=== PATIENT | male | born 1955 | race Caucasian/White ===

== ENCOUNTER 2016-11-03 12:46 | Emergency (ER) | payer SELFPAY ==
[~2016-11-03] VITALS: Ht 182.9 cm; Wt 79.4 kg
[~2016-11-03 12:46] MED LIST: CYCL10TA9; HYDR1TAB; IBUPROFEN
--- OUTSIDE RECORDS SUMMARY | 2016-11-03 12:53 | XMS REPORT | Continuity of Care Document ---
Author Author [facility] Address Unknown Phone Unavailable Allergies Medications Problems Date Dx Coded Attending Type Code Diagnosis Diagnosed By 01/01/2012 RICHIE NELSON APRN 723.1 PAIN NECK 01/01/2012 RICHIE NELSON APRN 724.5 BACK PAIN, GENERAL 01/01/2012 RICHIE NELSON APRN 729.5 LEG PAIN 01/01/2012 RICHIE NELSON APRN 783.21 WEIGHT LOSS 01/01/2012 RICHIE NELSON APRN 789.05 ABDOMINAL PAIN PERIUMBILIC 01/01/2012 RICHIE NELSON APRN 723.1 PAIN NECK 01/01/2012 RICHIE NELSON APRN 724.5 BACK PAIN, GENERAL 01/01/2012 RICHIE NELSON APRN 729.5 LEG PAIN 01/01/2012 RICHIE NELSON APRN 783.21 WEIGHT LOSS 01/01/2012 RICHIE NELSON APRN 789.05 ABDOMINAL PAIN PERIUMBILIC 01/29/2012 RICHIE NELSON APRN 242.90 HYPERTHYROIDISM 01/29/2012 RICHIE NELSON APRN 790.6 Liver Function Test, Abnormal 01/29/2012 RICHIE NELSON APRN 242.90 HYPERTHYROIDISM 01/29/2012 RICHIE NELSON APRN 790.6 Liver Function Test, Abnormal Procedures Code [place] [address] ROUTINE VENIPUNCTURE 01/30/2012 81214 CMP 01/30/2012 8812606 GFR CALC (RESULT ONLY) 01/30/2012 84304 LDH 01/31/2012 90853 T4 FREE 2011 25948 PROLACTIN 2011 77008 T3 TOTAL 2011 57534 HEPATITIS PROFILE 01/31/2012 6306336 HCV INDEX (RESULT ONLY) 01/31/2012 62144 AFP TUMOR MARKER 01/31/2012 23274 HCG QUALITATIVE 01/31/2012 74890 HIV-STATE LAB 692[address] CT ABDOMEN & PELVIS W/ & W/O CONTRAST 01/31/2012 Results Encounters ACCT No. Visit Date/Time Discharge Status Pt. Type Provider Facility Loc./Unit Complaint [id number] 01/30/2012 10:05:00 01/30/2012 23: 59:59 CLS Outpatient RICHIE NELSON APRN [id number] 01/30/2012 10:05:00 01/30/2012 23: 59:59 CLS Outpatient RICHIE NELSON APRN
[2016-11-03] MEDS ORDERED: KETOROLAC 30 MG/ML VIAL IVP STA (13:01)
--- NOTE | 2016-11-03 13:22 | Diagnostic Imaging Report ---
INDICATION: Right hand pain, COMPARISON: None. FINDINGS: Three views of the right hand demonstrate no fracture or dislocation. Articular surfaces are age-appropriate. There is mild degenerative change of the first carpal metacarpal phalangeal joint. There is no bony erosion. No foreign body. IMPRESSION: Degenerative joint disease. No fracture or dislocation. Dictated by: Dictated on workstation # [id number]
[2016-11-03 13:33] LABS: BASOPHILS # (AUTO) 0.1 10^3/uL (0.0-0.1); BASOPHILS % (AUTO) 1 % (0-10); EOSINOPHILS # (AUTO) 0.1 10^3/uL (0.0-0.3); EOSINOPHILS % (AUTO) 2 % (0-10); LYMPHOCYTES % (AUTO) 38 % (12-44); MEAN CORPUSCULAR HEMOGLOBIN 31 PG (25-34); MEAN CORPUSCULAR HGB CONC 34 G/DL (32-36); MEAN CORPUSCULAR VOLUME 93 FL (80-99); MEAN PLATELET VOLUME 9.8 FL (7.4-10.4); MONOCYTES # (AUTO) 0.9 X 10^3 (0.0-1.0); MONOCYTES % (AUTO) 17 % (0-12); NEUTROPHILS # (AUTO) 2.2 X 10^3 (1.8-7.8); NEUTROPHILS % (AUTO) 42 % (42-75); PLATELET COUNT 150 10^3/uL (130-400); RED BLOOD COUNT 4.68 10^6/uL (4.35-5.85); RED CELL DISTRIBUTION WIDTH 13.5 % (10.0-14.5); WHITE BLOOD COUNT 5.3 10^3/uL (4.3-11.0)
[2016-11-03 13:52] LABS: ALANINE AMINOTRANSFERASE 475 U/L (0-55); ALBUMIN 4.1 GM/DL (3.2-4.5); ANION GAP 11 MMOL/L (5-14); ASPARTATE AMINO TRANSFERASE 356 U/L (5-34); BLOOD UREA NITROGEN 23 MG/DL (7-18); BUN/CREATININE RATIO 26; CALCIUM 9.3 MG/DL (8.5-10.1); CARBON DIOXIDE 19 MMOL/L (21-32); CHLORIDE 106 MMOL/L (98-107); GFR ESTIMATED > 60; GLUCOSE 90 MG/DL (70-105); POTASSIUM 4.4 MMOL/L (3.6-5.0); SODIUM 136 MMOL/L (135-145); TOTAL PROTEIN 7.7 GM/DL (6.4-8.2)
--- NOTE | 2016-11-03 13:52 | ED General ---
General Chief Complaint: Upper Extremity Stated Complaint: R HAND FINGER INFECTION Nursing Triage Note: c/o pain/swelling/drainage to right 2nd finger. Was on Bactrim with I and D per Dr Reina in [place] but states no improvement Nursing Sepsis Screen: No Definite Risk Source of Information: Patient Exam Limitations: No Limitations History of Present Illness Time Seen by Provider: 13:45 Initial Comments 61-year-old male patient presents to the emergency department complains of pain , swelling, redness, drainage from the second finger on the right hand. Patient was given Bactrim with incision and drainage performed by Dr. balderrama in [place]. Patient denies improvement in symptoms. Denies seeing anyone else for this. Timing/Duration: Constant, Other (2 wks) Modifying Factors: worse with Medication (no improvement with bactrim) Allergies and Home Medications Allergies Coded Allergies: No Known Drug Allergies (Unverified Allergy, Mild, 08/24/08) Home Medications Cyclobenzaprine Hcl 10 Mg Tablet, (Reported) Hydrocodone Bit/Acetaminophen 1 Each Tablet, (Reported) [Ibuprofen] , (Reported) Constitutional: No chills, No fever, No malaise Respiratory: no symptoms reported Cardiovascular: no symptoms reported Gastrointestinal: no symptoms reported Musculoskeletal: see HPI (rt 2nd finger pain), joint swelling (rt 2nd finger swelling) Skin: see HPI Psychiatric/Neurological: No Symptoms Reported All Other Systems Reviewed Negative Unless Noted: Yes (Negative excepted noted.) Past [id number]-[id number]-Ijihfb Hx Patient Social History Recent Foreign Travel: No Contact w/Someone Who Travel: No Recent Infectious Disease Expo: No Surgeries HX Surgeries: No Respiratory Hx Respiratory Disorders: No Cardiovascular Hx Cardiac Disorders: No Neurological Hx Neurological Disorders: No Musculoskeletal Hx Musculoskeletal Disorders: No Integumentary HX Skin/Integumentary Disorder: Yes (h/o MRSA) Reviewed Nursing Assessment Reviewed/Agree w Nursing PMH: Yes Family Medical History Significant Family History: No Pertinent Family Hx Physical Exam Vital Signs Vital Sign - Last 12Hours 11/03/16 13:02 Temp 98.1 Pulse 82 Resp 18 B/P (MAP) 130/80 Pulse Ox 98 Capillary Refill : Less Than 3 Seconds General Appearance: No Apparent Distress, WD/WN, Thin, Other (figets, difficulty sitting still. ) Respiratory: Lungs Clear, Normal Breath Sounds, No Accessory Muscle Use, No Respiratory Distress Cardiovascular: Regular Rate, Rhythm, No Murmur, Normal Peripheral Pulses Back: Normal Inspection Extremity: Normal Capillary Refill, Other (swelling of the distal rt 2nd finger with tenderness and mild erythema. no evidence of ecchymosis or warmth. 2 small areas of the left axilla measuring 0.5 cm with mild erythema and tenderness.) Neurologic/Psychiatric: Alert, Oriented x3, No Motor/Sensory Deficits, Other ( elevated mood. flight of ideas, difficulty sitting still.) Skin: Normal Color, Warm/Dry, Tattoos/Piercings, Other (swelling of the distal rt 2nd finger with tenderness and mild erythema. no evidence of ecchymosis or warmth. 2 small areas of the left axilla measuring 0.5 cm with mild erythema and tenderness.) Progress/Results/Core Measures Results/Orders Lab Results Laboratory Tests Test 11/03/16 13:25 11/03/16 14:10 Range/Units White Blood Count 5.3 4.3-11.0 10^3/uL Red Blood Count 4.68 4.35-5.85 10^6/uL Hemoglobin 14.7 13.3-17.7 G/DL Hematocrit 43 40-54 % Mean Corpuscular Volume 93 80-99 FL Mean Corpuscular Hemoglobin 31 25-34 PG Mean Corpuscular Hemoglobin Concent 34 32-36 G/DL Red Cell Distribution Width 13.5 10.0-14.5 % Platelet Count 150 130-400 10^3/uL Mean Platelet Volume 9.8 7.4-10.4 FL Neutrophils (%) (Auto) 42 42-75 % Lymphocytes (%) (Auto) 38 12-44 % Monocytes (%) (Auto) 17 H 0-12 % Eosinophils (%) (Auto) 2 0-10 % Basophils (%) (Auto) 1 0-10 % Neutrophils # (Auto) 2.2 1.8-7.8 X 10^3 Lymphocytes # (Auto) 2.0 1.0-4.0 X 10^3 Monocytes # (Auto) 0.9 0.0-1.0 X 10^3 Eosinophils # (Auto) 0.1 0.0-0.3 10^3/uL Basophils # (Auto) 0.1 0.0-0.1 10^3/uL Sodium Level 136 135-145 MMOL/L Potassium Level 4.4 3.6-5.0 MMOL/L Chloride Level 106 98-107 MMOL/L Carbon Dioxide Level 19 L 21-32 MMOL/L Anion Gap 11 5-14 MMOL/L Blood Urea Nitrogen 23 H 7-18 MG/DL Creatinine 0.90 0.60-1.30 MG/DL Estimat Glomerular Filtration Rate > 60 BUN/Creatinine Ratio 26 Glucose Level 90 70-105 MG/DL Calcium Level 9.3 8.5-10.1 MG/DL Total Bilirubin 1.0 0.1-1.0 MG/DL Aspartate Amino Transf (AST/SGOT) 356 H 5-34 U/L Alanine Aminotransferase (ALT/SGPT) 475 H 0-55 U/L Alkaline Phosphatase 103 40-136 U/L Total Protein 7.7 6.4-8.2 GM/DL Albumin 4.1 3.2-4.5 GM/DL Urine Color YELLOW Urine Clarity CLEAR Urine pH 6.5 5-9 Urine Specific [place] 1.015 L 1.016-1.022 Urine Protein NEGATIVE NEGATIVE Urine Glucose (UA) NEGATIVE NEGATIVE Urine Ketones NEGATIVE NEGATIVE Urine Nitrite NEGATIVE NEGATIVE Urine Bilirubin NEGATIVE NEGATIVE Urine Urobilinogen NORMAL NORMAL MG/DL Urine Leukocyte Esterase NEGATIVE NEGATIVE Urine RBC (Auto) NEGATIVE NEGATIVE Urine RBC 0-2 /HPF Urine WBC NONE /HPF Urine Squamous Epithelial Cells 0-2 /HPF Urine Crystals NONE /LPF Urine Bacteria NEGATIVE /HPF Urine Casts NONE /LPF Urine Mucus TRACE /LPF Urine Culture Indicated NO Urine Opiates Screen POSITIVE H NEGATIVE Urine Oxycodone Screen NEGATIVE NEGATIVE Urine Methadone Screen NEGATIVE NEGATIVE Urine Propoxyphene Screen NEGATIVE NEGATIVE Urine Barbiturates Screen NEGATIVE NEGATIVE Ur Tricyclic Antidepressants Screen NEGATIVE NEGATIVE Urine Phencyclidine Screen NEGATIVE NEGATIVE Urine Amphetamines Screen POSITIVE H NEGATIVE Urine Methamphetamines Screen POSITIVE H NEGATIVE Urine Benzodiazepines Screen NEGATIVE NEGATIVE Urine Cocaine Screen NEGATIVE NEGATIVE Urine Cannabinoids Screen NEGATIVE NEGATIVE My Orders Orders - ANGY HARDY Cbc With Automated Diff (11/03/16 13:01) Comprehensive Metabolic Panel (11/03/16 13:01) Drug Screen Stat (Urine) (11/03/16 13:01) Ua Culture If Indicated (11/03/16 13:01) Saline Lock/Iv-Start (11/03/16 13:01) Hand, Right, 3 Views (11/03/16 13:01) Ketorolac Injection (Toradol Injection) (11/03/16 13:01) Vital Signs/I&O Vital Sign - Last 12Hours 11/03/16 11/03/16 13:02 13:25 Temp 98.1 98.1 Pulse 82 Resp 18 B/P (MAP) 130/80 Pulse Ox 98 Blood Pressure Mean: 97 Diagnostic Imaging Diagonstic Imaging: Xray Plain Films/CT/US/NM/MRI: hand Comments FINDINGS: Three views of the right hand demonstrate no fracture or dislocation. Articular surfaces are age-appropriate. There is mild degenerative change of the first carpal metacarpal phalangeal joint. There is no bony erosion. No foreign body. IMPRESSION: Degenerative joint disease. No fracture or dislocation. Dictated by: Dictated on workstation # [id number] Reviewed: Reviewed by Me (radiology report reviewed by me) Departure Impression Impression: Primary Impression: Cellulitis of right index finger Additional Impressions: Sebaceous cyst of left axilla History of liver disease Methamphetamine use Disposition: HOME, SELF-CARE Condition: Improved Departure-Patient Inst. Decision time for Depature: 14:45 Referrals: NO,LOCAL PHYSICIAN (PCP/Family) Primary Care Physician Patient Instructions: Cellulitis (Skin Infection), Adult (DC), Drug Allergy, Methamphetamine Add. Discharge Instructions: All discharge instructions reviewed with patient and/or family. Voiced understanding. Medications as instructed. Elevate the right hand on pillows. Shower with antibacterial soap. Cover the wound with gauze. You may leave the wound to air when at home, otherwise cover the wound with a dressing. Avoid soiling the wound. Do not use telfa to cover the wound. Do not use antibiotic ointment on the wound. Follow-up with your family practitioner for recheck, possible need for cyst removal of the left armpit, and repeat lab work within the next 3-5 days. Discuss the positive drug screen for opiates and methamphetamines. Return to the emergency department for worsened symptoms or any other concerns. Scripts Ketoprofen (Ketoprofen) 75 Mg Capsule 75 MG PO Q8H Y for pain, #20 CAP 0 Refills Prov: ANGY HARDY 11/03/16 Clindamycin HCl (Cleocin HCl) 300 Mg Capsule 300 MG PO QID, #28 CAP 0 Refills Prov: ANGY HARDY 11/03/16 ANGY HARDY Nov 03, 2016 13:51
[2016-11-03 14:20] LABS: BILIRUBIN,URINE NEGATIVE (NEGATIVE); KETONES,URINE NEGATIVE (NEGATIVE); LEUKOCYTE ESTERASE ,URINE NEGATIVE (NEGATIVE); NITRITE,URINE NEGATIVE (NEGATIVE); PH,URINE 6.5 (5-9); PROTEIN,URINE NEGATIVE (NEGATIVE); UROBILINOGEN,URINE NORMAL (NORMAL)
[2016-11-03 14:41] LABS: SQUAMOUS EPITHELIAL CELL,UR 0-2 /HPF
[2016-11-03] MEDS ORDERED: KETO75CA PO (14:46)
[2016-11-03] MEDS ORDERED: CLIN300C3 PO (14:46)
[2016-11-03 15:25] VITALS: BP 142/70
== END 2016-11-03 15:25 | disposition home or self-care (01) ==
LOC: EDUNIT# 12:46 → ER 12:49
DX: L03.011 Cellulitis of right finger (principal); L72.3 Sebaceous cyst; F15.90 Other stimulant use, unspecified, uncomplicated; Z86.19 Personal history of other infectious and parasitic diseases
CPT/HCPCS: 36415; 73130; 80053; 80306; 81000; 85025; 87070; 87077; 87186; 87205; 96374